=== PATIENT | male | born 1975 | race Two or more races ===

== ENCOUNTER 2025-06-28 22:51 | Emergency (ER) | payer OTHER ==
[~2025-06-28] VITALS: Ht 172.7 cm; Wt 124.0 kg
[2025-06-28 23:00] VITALS: BP 156/84; PULSE 63; RESP 18; TEMP 98.8; O2SAT 97
== END 2025-06-29 00:41 | disposition left against medical advice (07) ==
LOC: ER 22:51
DX: R73.9 Hyperglycemia, unspecified (principal); Z79.899 Other long term (current) drug therapy